=== PATIENT | female | born 1990 | race Caucasian/White ===

== ENCOUNTER 2021-11-20 10:56 | Emergency (ER) | payer OTHER ==
[~2021-11-20] VITALS: Ht 129.5 cm; Wt 50.0 kg
[2021-11-20] MEDS ORDERED: ACETAMINOPHEN 500 MG TABLET PO ONE (12:30)
[2021-11-20 14:34] VITALS: BP 108/63
== END 2021-11-20 14:37 ==
LOC: EDBD 11:00 → EMS 11:00
DX: Z11.1 Encounter for screening for respiratory tuberculosis (principal); R52 Pain, unspecified
CPT/HCPCS: 71045; 99283; 99284